=== PATIENT | female | born 2005 | race Two or more races ===

== ENCOUNTER 2023-11-01 00:47 | Emergency (ER) | payer MEDICAID ==
[~2023-11-01] VITALS: Ht 152.4 cm; Wt 63.5 kg
[2023-11-01] MEDS ORDERED: diphenhydrAMINE HCL ELIX 25 MG/10 ML UDC ONE (02:52)
[2023-11-01] MEDS ORDERED: METOCLOPRAMIDE HCL 10 MG TABLET ONE (02:53)
[2023-11-01] MEDS ORDERED: ACETAMINOPHEN 325 MG TABLET ONE (02:53)
[2023-11-01] MEDS: ACETAMINOPHEN 325 MG TABLET PO ONE (02:58)
[2023-11-01] MEDS: DIPHENHYDRAMINE HCL 12.5 MG/5 ML UDC PO ONE (02:58)
[2023-11-01] MEDS: METOCLOPRAMIDE HCL 10 MG TABLET PO ONE (02:58)
[2023-11-01 03:05] LABS: BASOPHILS % (AUTO) 0.5 % (0.0-2.0); EOSINOPHILS # (AUTO) 0.1 K/uL (0.0-0.7); EOSINOPHILS % (AUTO) 0.8 % (0.0-6.0); HEMATOCRIT 42 % (33-45); HEMOGLOBIN 13.9 g/dL (11.5-14.8); LYMPHOCYTES # (AUTO) 2.3 K/uL (0.8-4.8); LYMPHOCYTES % (AUTO) 35.8 % (20.0-44.0); MEAN CORPUSCULAR HEMOGLOBIN 31 PG (26.0-33.0); MEAN CORPUSCULAR HGB CONC 33 g/dl (31.0-36.0); MEAN CORPUSCULAR VOLUME 94 fL (82-100); MONOCYTES # (AUTO) 0.4 K/uL (0.1-1.30); MONOCYTES % (AUTO) 6.5 % (2.0-12.0); NEUTROPHILS # (AUTO) 3.7 K/uL (1.8-8.9); NEUTROPHILS % (AUTO) 56.4 % (43.0-81.0); PLATELET COUNT (AUTO) 258 K/uL (150-450); RED BLOOD CELL COUNT(AUTO) 4.45 MIL/uL (4.0-5.2); RED CELL DISTRIBUTION WIDTH 13.8 % (11.5-15.0); WHITE BLOOD COUNT (AUTO) 6.5 K/uL (4.3-11.0)
[2023-11-01 03:36] LABS: ALANINE AMINOTRANSFERASE 18 U/L (12-78); ALBUMIN 3.6 g/dL (3.4-5.0); ALKALINE PHOSPHATASE 70 U/L (46-116); ASPARTATE AMINOTRANSFERASE 14 U/L (15-37); BILIRUBIN,DIRECT 0.2 mg/dL (0.0-0.2); BILIRUBIN,TOTAL 0.5 mg/dL (0.2-1.0); CALCIUM, SERUM 9.3 mg/dL (8.5-10.1); CARBON DIOXIDE 26 mmol/L (21-32); CHLORIDE 104 mmol/L (98-107); CREATININE 0.8 mg/dL (0.6-1.3); GLUCOSE 94 mg/dL (74-106); POTASSIUM 3.6 mmol/L (3.5-5.1); SODIUM SERUM 140 mmol/L (136-145); TOTAL PROTEIN, SERUM 7.5 g/dL (6.4-8.2); UREA NITROGEN, BLOOD 9 mg/dL (7-18)
[2023-11-01 04:55] LABS: PREGNANCY TEST URINE QUAL NEGATIVE (NEGATIVE)
[2023-11-01 07:02] VITALS: BP 138/86; TEMP 98.7; O2SAT 99
== END 2023-11-01 07:02 | disposition home or self-care (01) ==
LOC: ER 01:06
DX: R51.9 Headache, unspecified (principal); R10.2 Pelvic and perineal pain
CPT/HCPCS: 99285; 70450; 71045; 93005; 85025; 80048; 80076; 84703; 36415; 84484; 84702; Q0163 ×2; J8597